=== PATIENT | male | born 1940 | race American Indian/Alaskan Native ===

== ENCOUNTER 2020-11-01 10:08 | Emergency (ER) | payer MEDICARE ==
--- NOTE | 2020-11-01 11:31 | XRay Report ---
CHEST 2 VIEWS INDICATION / CLINICAL INFORMATION: cough for a week. COMPARISON: 08/27/19 FINDINGS: SUPPORT DEVICES: None. HEART / MEDIASTINUM: No significant abnormality. LUNGS / PLEURA: No significant pulmonary or pleural abnormality. No pneumothorax. ADDITIONAL FINDINGS: No significant additional findings. IMPRESSION: 1. No acute findings. Signer Name: Corey Fields MD Signed: 11/01/2020 11:26 AM Workstation Name: [id number]
--- NOTE | 2020-11-01 12:02 | Emergency Department Report ---
- General Chief Complaint: Upper Respiratory Infection Stated Complaint: COUGH, Time Seen by Provider: 11/01/20 11:02 Source: patient Mode of arrival: Ambulatory Limitations: No Limitations - History of Present Illness Initial Comments: Patient is a 80-year-old male presents emergency room with complaints of a nonproductive cough that began a week ago. He has associated sneezing. He denies any fever, nausea, vomiting, diarrhea, shortness of breath, chest pain, abdominal pain. Past medical history of diabetes, hypertension, arthritis. No allergies to medications. He is a never smoker. - Related Data Home Medications Medication Instructions Recorded Confirmed Last Taken Saxagliptin HCl [Onglyza] 5 mg PO DAILY 04/27/15 08/27/19 06/01/15 Simvastatin (Nf) [Zocor TAB] 20 mg PO QHS 04/27/15 08/27/19 06/01/15 lisinopriL [Zestril TAB] 10 mg PO QDAY 04/27/15 08/27/19 06/01/15 metFORMIN XR [Glucophage XR] 1,000 mg PO QDAY 04/27/15 08/27/19 06/01/15 Aspirin [Aspirin BABY CHEW TAB] 81 mg PO QDAY 08/27/19 08/27/19 Unknown Etodolac [Etodolac ER] 400 mg PO DAILY 08/27/19 08/27/19 Unknown Fluticasone/Vilanterol [Breo 1 each IH QHS 08/27/19 08/27/19 Unknown Ellipta 200-25 Mcg INH] Glimepiride [Amaryl] 4 mg PO QPM 08/27/19 08/27/19 Unknown Previous Rx's Medication Instructions Recorded Last Taken Type Azithromycin [Zithromax TAB] 500 mg PO QDAY 5 Days #5 tablet 08/30/19 Unknown Rx cefUROXime [Ceftin] 500 mg PO Q12H 5 Days #20 tablet 08/30/19 Unknown Rx Azithromycin [Zithromax TAB] 250 mg PO QDAY 5 Days #6 tablet 11/01/20 Unknown Rx Loratadine 10 mg PO DAILY #10 tablet 11/01/20 Unknown Rx guaiFENesin/DEXTROMETHORPHAN 1 each PO Q6HR PRN #10 capsule 11/01/20 Unknown Rx [Coricidin Hbp Chest Moess-Cough] Allergies Allergy/AdvReac Type Severity Reaction Status Date / Time No Known Allergies Allergy Verified 11/01/20 10:08 ED Review of Systems ROS: Stated complaint: COUGH, Other details as noted in HPI Comment: All other systems reviewed and negative ED Past Medical Hx - Past Medical History Hx Hypertension: Yes (+ hyperlipidemia) Hx Heart Attack/AMI: No Hx Diabetes: Yes Hx Renal Disease: No Hx Seizures: No Hx Asthma: No Hx COPD: No - Surgical History Additional Surgical History: prostate. cataracts - Social History Smoking Status: Never Smoker Substance Use Type: None - Medications Home Medications: Home Medications Medication Instructions Recorded Confirmed Last Taken Type Saxagliptin HCl [Onglyza] 5 mg PO DAILY 04/27/15 08/27/19 06/01/15 History Simvastatin (Nf) [Zocor TAB] 20 mg PO QHS 04/27/15 08/27/19 06/01/15 History lisinopriL [Zestril TAB] 10 mg PO QDAY 04/27/15 08/27/19 06/01/15 History metFORMIN XR [Glucophage XR] 1,000 mg PO QDAY 04/27/15 08/27/19 06/01/15 History Aspirin [Aspirin BABY CHEW TAB] 81 mg PO QDAY 08/27/19 08/27/19 Unknown History Etodolac [Etodolac ER] 400 mg PO DAILY 08/27/19 08/27/19 Unknown History Fluticasone/Vilanterol [Breo 1 each IH QHS 08/27/19 08/27/19 Unknown History Ellipta 200-25 Mcg INH] Glimepiride [Amaryl] 4 mg PO QPM 08/27/19 08/27/19 Unknown History Azithromycin [Zithromax TAB] 500 mg PO QDAY 5 Days #5 tablet 08/30/19 Unknown Rx cefUROXime [Ceftin] 500 mg PO Q12H 5 Days #20 tablet 08/30/19 Unknown Rx Azithromycin [Zithromax TAB] 250 mg PO QDAY 5 Days #6 tablet 11/01/20 Unknown Rx Loratadine 10 mg PO DAILY #10 tablet 11/01/20 Unknown Rx guaiFENesin/DEXTROMETHORPHAN 1 each PO Q6HR PRN #10 capsule 11/01/20 Unknown Rx [Coricidin Hbp Chest Moses-Cough] ED Physical Exam - General Limitations: No Limitations General appearance: alert, in no apparent distress - Head Head exam: Present: atraumatic, normocephalic - Eye Eye exam: Present: normal appearance - ENT ENT exam: Present: mucous membranes moist - Respiratory Respiratory exam: Present: normal lung sounds bilaterally. Absent: respiratory distress, wheezes, rales, rhonchi, stridor, chest wall tenderness, accessory muscle use, decreased breath sounds, prolonged expiratory - Cardiovascular Cardiovascular Exam: Present: regular rate, normal rhythm, normal heart sounds. Absent: systolic murmur, diastolic murmur, rubs, gallop - Neurological Exam Neurological exam: Present: alert, oriented X3 - Psychiatric Psychiatric exam: Present: normal affect, normal mood - Skin Skin exam: Present: warm, dry, intact ED Course Vital Signs 11/01/20 11/01/20 10:18 12:21 Temperature 99.0 F 98.7 F Pulse Rate 94 H 74 Respiratory 20 20 Rate Blood Pressure 121/58 112/60 O2 Sat by Pulse 99 100 Oximetry ED Medical Decision Making - Radiology Data Radiology results: report reviewed Ordering Physician: JAMES PACKER Date of Service: 11/01/20 Procedure(s): XR chest routine 2V Accession Number(s): [id number] cc: JAMES PACKER Fluoro Time In Minutes: CHEST 2 VIEWS INDICATION / CLINICAL INFORMATION: cough for a week. COMPARISON: 08/27/19 FINDINGS: SUPPORT DEVICES: None. HEART / MEDIASTINUM: No significant abnormality. LUNGS / PLEURA: No significant pulmonary or pleural abnormality. No pneumothorax. ADDITIONAL FINDINGS: No significant additional findings. IMPRESSION: 1. No acute findings. Signer Name: Corey Fields MD Signed: 11/01/2020 11:26 AM Workstation Name: [id number] Transcribed By: DT Dictated By: Dakota Fields MD Electronically Authenticated By: Dakota Fields MD Signed Date/Time: 11/01/201125 DD/ 25 TD/TT: Print - Medical Decision Making Patient is a 80-year-old male presents emergency room with complaints of a nonproductive cough that began a week ago. He has associated sneezing. He denies any fever, nausea, vomiting, diarrhea, shortness of breath, chest pain, abdominal pain. Past medical history of diabetes, hypertension, arthritis. No allergies to medications. He is a never smoker. Vitals are normal. On exam breath sounds are clear bilaterally, no wheezing, no rales, no rhonchi, no respiratory distress, no accessory muscle use. CXR: 1. No acute findings. Patient given prescription for medications. Advised patient Please take medication as prescribed. Follow-up with your primary care doctor. Return to emergency room for any new or worsening symptoms. Critical care attestation.: If time is entered above; I have spent that time in minutes in the direct care of this critically ill patient, excluding procedure time. ED Disposition Clinical Impression: URI (upper respiratory infection) Qualifiers: URI type: unspecified URI Qualified Code(s): J06.9 - Acute upper respiratory infection, unspecified Disposition: TO HOME OR SELFCARE Is pt being admited?: No Does the pt Need Aspirin: No Condition: Stable Instructions: Upper Respiratory Infection, Adult Additional Instructions: Please take medication as prescribed. Follow-up with your primary care doctor. Return to emergency room for any new or worsening symptoms. Prescriptions: guaiFENesin/DEXTROMETHORPHAN [Coricidin Hbp Chest Moses-Cough] 1 each PO Q6HR PRN #10 capsule PRN Reason: cough Loratadine 10 mg PO DAILY #10 tablet Azithromycin [Zithromax TAB] 250 mg PO QDAY 5 Days #6 tablet Referrals: PRIMARY CARE, [Primary Care Provider] - 2-3 Days Time of Disposition: 12:01 Print Language: KOSOVAN
[2020-11-01 12:23] VITALS: BP 112/60
== END 2020-11-01 12:26 | disposition home or self-care (01) ==
LOC: ED 10:08
DX: J06.9 Acute upper respiratory infection, unspecified (principal); I10 Essential (primary) hypertension; E11.9 Type 2 diabetes mellitus without complications; Z98.890 Other specified postprocedural states; Z79.84 Long term (current) use of oral hypoglycemic drugs; Z79.2 Long term (current) use of antibiotics; Z79.899 Other long term (current) drug therapy
CPT/HCPCS: 71046